=== PATIENT | female | born 1975 | race Two or more races ===

== ENCOUNTER 2017-10-18 22:13 | Day surgery (SDC) | payer OTHER ==
[2017-10-18 22:28] VITALS: BMI 42.9
--- NOTE | 2017-10-19 00:10 | PDOC ---
History of Present Illness - General History Source: Patient Exam Limitations: No Limitations - History of Present Illness Initial Comments: 10/19/17 01:11 The patient is a 42 year old female with no significant PMH who presents to the emergency department with episode of vomiting since earlier today. The patient also reports some 10 episodes of diarrhea . she states that she has been experiencing right upper quadrant and right lower quadrant pain secondary to her symptoms. The patient states that she is unable to tolerate po intake secondary to her symptoms as well. The patient denies any other symptoms. She denies any fever, chills, nausea, constipation or urinary symptoms. She denies any chest pain, shortness of breath, headache and dizziness. The patient denies any sick contact. The patient denies any other complaints. <Robel Balderrama - Last Filed: 10/19/17 01:11> <Liz Guajardo - Last Filed: 10/19/17 03:04> - General Chief Complaint: Vomiting/Diarrhea Stated Complaint: VOMITING/DIARRHEA Time Seen by Provider: 10/18/17 23:59 Past History <Robel Balderrama - Last Filed: 10/19/17 01:11> - Past Medical History COPD: No - Suicide/Smoking/Psychosocial Hx Smoking History: Never smoked <Liz Guajardo - Last Filed: 10/19/17 03:04> - Past Medical History Allergies/Adverse Reactions: Allergies Allergy/AdvReac Type Severity Reaction Status Date / Time No Known Allergies Allergy Verified 10/18/17 22:23 Review of Systems - Review of Systems Able to Perform ROS?: Yes Comments:: 10/19/17 01:11 GENERAL/CONSTITUTIONAL: No fever or chills. No weakness. HEAD, EYES, EARS, NOSE AND THROAT: No change in vision. No ear pain or discharge. No sore throat. CARDIOVASCULAR: No chest pain or shortness of breath. RESPIRATORY: No cough, wheezing, or hemoptysis. GASTROINTESTINAL:(+)vomiting, diarrhea. No nausea, or constipation. GENITOURINARY: No dysuria, frequency, or change in urination. MUSCULOSKELETAL: No joint or muscle swelling or pain. No neck or back pain. SKIN: No rash NEUROLOGIC: No headache, vertigo, loss of consciousness, or change in strength/ sensation. ENDOCRINE: No increased thirst. No abnormal weight change. HEMATOLOGIC/LYMPHATIC: No anemia, easy bleeding, or history of blood clots. ALLERGIC/IMMUNOLOGIC: No hives or skin allergy. <Robel Balderrama - Last Filed: 10/19/17 01:11> *Physical Exam - Vital Signs Last Vital Signs Temp Pulse Resp BP Pulse Ox 99 F 63 18 134/77 98 10/18/17 22:25 10/18/17 22:25 10/18/17 22:25 10/18/17 22:25 10/18/17 22:25 - Physical Exam Comments: 10/19/17 01:11 GENERAL: Awake, alert, and fully oriented, in no acute distress HEAD: No signs of trauma EYES: PERRLA, EOMI, sclera anicteric, conjunctiva clear ENT: Auricles normal inspection, hearing grossly normal, nares patent, oropharynx clear without exudates. Moist mucosa NECK: Normal ROM, supple, no lymphadenopathy, JVD, or masses LUNGS: Breath sounds equal, clear to auscultation bilaterally. No wheezes, and no crackles HEART: Regular rate and rhythm, normal S1 and S2, no murmurs, rubs or gallops ABDOMEN: Soft, nontender, normoactive bowel sounds. No guarding, no rebound. No masses. Negative stanford's sign. EXTREMITIES: Normal range of motion, no edema. No clubbing or cyanosis. No cords, erythema, or tenderness NEUROLOGICAL: Cranial nerves II through XII grossly intact. Normal speech, normal gait SKIN: Warm, Dry, normal turgor, no rashes or lesions noted. <Robel Balderrama - Last Filed: 10/19/17 01:11> - Vital Signs Last Vital Signs Temp Pulse Resp BP Pulse Ox 99 F 63 18 134/77 98 10/18/17 22:25 10/18/17 22:25 10/18/17 22:25 10/18/17 22:25 10/18/17 22:25 <Liz Guajardo - Last Filed: 10/19/17 03:04> ED Treatment Course - LABORATORY CBC & Chemistry Diagram: 10/19/17 00:46 10/19/17 00:50 - ADDITIONAL ORDERS Additional order review: 10/19/17 00:46 RBC 4.87 MCV 88.6 MCHC 33.5 RDW 14.0 MPV 9.7 Neutrophils % 90.4 H Lymphocytes % 6.3 L Monocytes % 3.1 L Eosinophils % 0.0 Basophils % 0.2 - Medications Given in the ED: ED Medications Discontinued Medications Generic Name Dose Route Start Last Admin Trade Name Connor PRN Reason Stop Dose Admin Acetaminophen 1,000 mg 10/19/17 00:11 10/19/17 00:38 Ofirmev Injection - IVPB 10/19/17 00:12 1,000 mg ONCE ONE Administration Famotidine/Sodium Chloride 20 mg in 50 mls @ 100 mls/hr 10/19/17 00:11 00:38 Pepcid 20 Mg Premixed Ivpb - IVPB 10/19/17 00:40 100 mls/hr ONCE ONE Administration Ondansetron HCl 4 mg 10/19/17 00:11 10/19/17 00:38 Zofran Injection IVPUSH 10/19/17 00:12 4 mg ONCE ONE Administration Sodium Chloride 1,000 ml 10/19/17 00:11 10/19/17 00:37 Normal Saline - IV 10/19/17 00:12 1,000 ml ONCE ONE Administration <Robel Balderrama - Last Filed: 10/19/17 01:11> - LABORATORY CBC & Chemistry Diagram: 10/19/17 00:46 10/19/17 00:50 <Liz Guajardo - Last Filed: 10/19/17 03:04> Medical Decision Making - Medical Decision Making 10/19/17 00:35 a/p: 42yo female with n/v/d today and abd pain -both RUQ and RLQ abd pain -pain over mcburneys point -neg murphys -concern for poss appy -will send labs, ct abd/pelvis -will hydrate with ivf hydration -zofran for n/v -iv tylenol -will monitor and reassess +rovsing sign 10/19/17 02:49 pt with elevated wbc 10/19/17 02:49 ct shows early acute appendicitis case discussed with Dr. Syed who is now at the bedside to eval the patient 10/19/17 03:04 dr syed preop for or for appy accepts pt to service <Liz Guajardo - Last Filed: 10/19/17 03:04> *DC/Admit/Observation/Transfer - Attestations Scribe Attestion: 10/19/17 01:12 Documentation prepared by Robel Balderrama, acting as medical technologist microbiology for Liz Guajardo MD. <Robel Balderrama - Last Filed: 10/19/17 01:11> - Discharge Dispostion Decision to Admit order: Yes - Attestations Physician Attestion: 10/19/17 02:49 I, Dr. Liz Guajardo, DO, attest that this document has been prepared under my direction and personally reviewed by me in its entirety. I further attest, that it accurately reflects all work, treatment, procedures and medical decision -making performed by me. <Liz Guajardo - Last Filed: 10/19/17 03:04> Diagnosis at time of Disposition: Appendicitis - Discharge Dispostion Condition at time of disposition: Fair
[2017-10-19] MEDS ORDERED: ONDANSETRON 4 MG/2 ML VIAL IVPUSH ONE (00:11)
[2017-10-19] MEDS ORDERED: SODIUM CHLORIDE 0.9% 1000 ML INFUS.BAG IV ONE ×3 (00:11→02:36)
[2017-10-19] MEDS ORDERED: FAMOTIDINE 20 MG/50 ML IVPB 20 MG/50 ML MG IVPB ONE ×2 (00:11→00:27)
[2017-10-19] MEDS ORDERED: ACETAMINOPHEN 1000 MG/100 ML VIAL (NON FORMULARY) IVPB ONE (00:11)
[2017-10-19] MEDS ORDERED: ACETAMINOPHEN INJECTION 100 ML IVPB ONE (00:26)
[2017-10-19] MEDS ORDERED: ONDANSETRON 4 MG/2 ML VIAL ONE (00:27)
[2017-10-19 01:00] LABS: BASO % 0.2 % (0-2.0); HEMATOCRIT 43.1 % (32.4-45.2); HEMOGLOBIN 14.4 GM/dL (10.7-15.3); LYMPH % 6.3 % (8-40); MCH 29.7 pg (25.7-33.7); MCHC 33.5 g/dl (32.0-36.0); MEAN CELL VOLUME 88.6 fl (80-96); MEAN PLT VOLUME 9.7 fl (7.5-11.1); MONO % 3.1 % (3.8-10.2); NEUT % 90.4 % (42.8-82.8); PLATELET COUNT 244 K/MM3 (134-434); RBC 4.87 M/mm3 (3.60-5.2); WHITE BLOOD COUNT 15.7 K/mm3 (4.0-10.0)
[2017-10-19 01:17] LABS: URINE APPEARANCE SLCLOUDY; URINE BILIRUBIN NEGATIVE (<2.0 mg/dL); URINE COLOR DKYELLOW; URINE GLUCOSE (UA) NEGATIVE (NEGATIVE); URINE KETONE 2+ (NEGATIVE); URINE LEUK ESTERASE NEGATIVE (NEGATIVE); URINE NITRITE NEGATIVE (NEGATIVE)
[2017-10-19 01:23] LABS: HCG,QUALITATIVE URINE NEGATIVE; URINE PROTEIN 2+ (NEGATIVE)
[2017-10-19 01:24] LABS: ALBUMIN 4.1 g/dl (3.4-5.0); ANION GAP 8 (8-16); BILIRUBIN,TOTAL 0.3 mg/dL (0.2-1.0); BLOOD UREA NITROGEN 16 mg/dL (7-18); CHLORIDE 102 mmol/L (98-107); CO2 27 mmol/L (21-32); CREATININE 0.6 mg/dL (0.55-1.02); GLUCOSE,RANDOM 117 mg/dL (74-106); LIPASE 77 U/L (73-393); MAGNESIUM 2.1 mg/dL (1.8-2.4); POTASSIUM 4.4 mmol/L (3.5-5.1); SGOT/AST 19 U/L (15-37); SGPT/ALT 28 U/L (12-78); SODIUM 137 mmol/L (136-145); TOT PROT 7.9 g/dl (6.4-8.2)
[2017-10-19 01:25] LABS: ALK PHOS 62 U/L (45-117); EPI CELLS MODERATE /HPF (FEW); URINE BACTERIA RARE /hpf (NONE SEEN); URINE MUCUS MANY
[2017-10-19] MEDS ORDERED: CEFOXITIN SODIUM 2 GM in DEXTROSE 5%-WATER - 100 ML IVPB ONE ×3 (03:03→16:00)
--- NOTE | 2017-10-19 03:33 | HP ---
Admitting History and Physical - Primary Care Physician PCP: none - Admission Chief Complaint: left periumbilical pain, n/v, anorexia History of Present Illness: 42yo F with h/o kidney stones presented to ER with left periumbilical pain beginning Wed morning associated with watery diarrhea, n/v (nb/nb) and anorexia. Last po was in the evening ~9pm, but little has stayed down. She had water, coconut water, michael fernando just before coming to ER. In ER, she has low grade temp, wbc 15.7, component of dehydration, nausea and retching, and loose stool while waiting. CT showed evidence of early acute appendicitis with appendix 1cm and mild surrounding inflammatory changes. She feels better after pain medication and IV fluids. No significant pain but still cleaner RLQ. She was seen in holding area with boyfriend at bedside. 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 denies: Fever Eyes: denies: Blurred Vision, Recent Change in Vision HENT: denies: Difficult Swallowing, Nasal Congestion, Throat Pain Neck: denies: Swollen Glands, Tenderness Cardiovascular: denies: Chest Pain, Palpitations Respiratory: denies: Cough, SOB Gastrointestinal: reports: Abdominal Pain, Diarrhea, Nausea, Vomiting. denies: Constipation, Rectal Bleeding, Vomiting Blood Genitourinary: denies: Burning, Dysuria Musculoskeletal: denies: Back Pain, Joint Pain, Muscle Pain Integumentary: denies: Change in Color, Rash Neurological: denies: Dizziness, Headache Psychiatric: denies: Anxiety, Depression Physical Examination Vital Signs: Vital Signs Temperature 99 F 10/18/17 22:25 Pulse Rate 63 10/18/17 22:25 Respiratory Rate 18 10/18/17 22:25 Blood Pressure 134/77 10/18/17 22:25 O2 Sat by Pulse Oximetry (%) 98 10/18/17 22:25 Constitutional: Yes: No Distress, Calm, Obese Eyes: Yes: Conjunctiva Clear, EOM Intact HENT: Yes: Atraumatic, Normocephalic Neck: Yes: Supple, Trachea Midline Cardiovascular: Yes: Regular Rate and Rhythm. No: Murmur Respiratory: Yes: Regular, CTA Bilaterally Gastrointestinal: Yes: Normal Bowel Sounds, Soft, Abdomen, Obese, Tenderness ( RLQ at McBurney's without rebound or guarding). No: Tenderness, Rebound, Vomiting ...Rectal Exam: Yes: Deferred Renal/: No: CVA Tenderness - Left, CVA Tenderness - Right Musculoskeletal: No: Joint Stiffness, Joint Swelling Extremities: No: Cool, Cyanosis Edema: No Peripheral Pulses WNL: Yes Integumentary: No: Jaundice, Rash Neurological: Yes: Alert, Oriented Psychiatric: Yes: Alert, Oriented Labs: CBC, BMP 10/19/17 00:46 10/19/17 00:50 CMP Sodium 137 mmol/L (136-145) 10/19/17 00:50 Potassium 4.4 mmol/L (3.5-5.1) 10/19/17 00:50 Chloride 102 mmol/L (98-107) 10/19/17 00:50 Carbon Dioxide 27 mmol/L (21-32) 10/19/17 00:50 Anion Gap 8 (8-16) 10/19/17 00:50 BUN 16 mg/dL (7-18) 10/19/17 00:50 Creatinine 0.6 mg/dL (0.55-1.02) 10/19/17 00:50 Creat Clearance w eGFR > 60 (>60) 10/19/17 00:50 Random Glucose 117 mg/dL (74-106) H 10/19/17 00:50 Calcium 9.0 mg/dL (8.5-10.1) 10/19/17 00:50 Magnesium 2.1 mg/dL (1.8-2.4) 10/19/17 00:50 Total Bilirubin 0.3 mg/dL (0.2-1.0) 10/19/17 00:50 AST 19 U/L (15-37) 10/19/17 00:50 ALT 28 U/L (12-78) 10/19/17 00:50 Alkaline Phosphatase 62 U/L (45-117) 10/19/17 00:50 Total Protein 7.9 g/dl (6.4-8.2) 10/19/17 00:50 Albumin 4.1 g/dl (3.4-5.0) 10/19/17 00:50 Lipase 77 U/L (73-393) 10/19/17 00:50 Urine Test Results Urine Color Dkyellow 10/19/17 00:50 Urine Appearance Slcloudy 10/19/17 00:50 Urine pH 5.0 (5.0-8.0) 10/19/17 00:50 Ur Specific Eva 1.033 (1.001-1.035) 10/19/17 00:50 Urine Protein 2+ (NEGATIVE) H 10/19/17 00:50 Urine Glucose (UA) Negative (NEGATIVE) 10/19/17 00:50 Urine Ketones 2+ (NEGATIVE) H 10/19/17 00:50 Urine Blood 1+ (NEGATIVE) H 10/19/17 00:50 Urine Nitrite Negative (NEGATIVE) 10/19/17 00:50 Urine Bilirubin Negative (<2.0 mg/dL) 10/19/17 00:50 Ur Leukocyte Esterase Negative (NEGATIVE) 10/19/17 00:50 Ur Epithelial Cells Moderate /HPF (FEW) 10/19/17 00:50 Urine Bacteria Rare /hpf (NONE SEEN) 10/19/17 00:50 Urine Mucus Many 10/19/17 00:50 PT/INR pending Imaging - Results Cat Scan: Report Reviewed, Image Reviewed (images personally reviewed, [facility]; no obstruction, no free air or fluid, appendix dilated to 1cm, mild periappendiceal inflammatory changes, large uterine fibroid with portion off right superior horn, also displacing IUD to upper right) Problem List - Problems (1) Appendicitis, acute Assessment/Plan: admit 23H/satellite to surgery NPO/IVF until postop IV antibiotics pain meds prn DVT prophylaxis Discussed with patient risks, benefits and alternatives of laparoscopic possible open appendectomy, including but not limited to bleeding, infection, injury to adjacent structures, intestinal leak or injury, intraabdominal abscess , hernia, need for further procedures, ; alternatives include antibiotics, delayed or no surgery - risks of this include failure of nonoperative therapy, perforation, sepsis, recurrence, . Pt seems comfortable with explanation of appendicitis, recommendation for surgery and understanding of R/B/A. Her boyfriend asked about what would happen if she "opted out" of surgery, wanted a second opinion, or walked out and got better. He was told that she was welcome to a second opinion in the morning, and potential for treatment with antibiotics and no surgery was discussed, including risks of failure of nonoperative therapy, 4-5 days in hospital on IV antibiotics before transitioning to oral for home, possibility of recurrence with appendix still in, and chance of perforation, need for percutaneous drainage, interval appendectomy or emergent surgery with higher risks of complications. We also discussed that the chance of getting better with no treatment at all was highly unlikely, and she was far more likely to perforate, possibly get septic, and need some or all of the above interventions anyway. Patient desires to proceed with operation - will take to OR for above. Informed consent signed for same. Code(s): K35.80 - UNSPECIFIED ACUTE APPENDICITIS Qualifiers: Acute appendicitis type: unspecified acute appendicitis type Qualified Code (s): K35.80 - Unspecified acute appendicitis (2) Periumbilical pain Code(s): R10.33 - PERIUMBILICAL PAIN (3) Nausea and vomiting Code(s): R11.2 - NAUSEA WITH VOMITING, UNSPECIFIED Qualifiers: Vomiting type: unspecified Vomiting Intractability: non-intractable Qualified Code(s): R11.2 - Nausea with vomiting, unspecified (4) Diarrhea Code(s): R19.7 - DIARRHEA, UNSPECIFIED Qualifiers: Diarrhea type: unspecified type Qualified Code(s): R19.7 - Diarrhea, unspecified (5) Morbid obesity with BMI of 40.0-44.9, adult Code(s): E66.01 - MORBID (SEVERE) OBESITY DUE TO EXCESS CALORIES; Z68.41 - BODY MASS INDEX (BMI) 40.0-44.9, ADULT
[2017-10-19] MEDS ORDERED: MORPHINE SULFATE 2 MG/ML VIAL IVPUSH PRN (03:52)
[2017-10-19] MEDS ORDERED: ACETAMINOPHEN 325 MG TABLET (FP) PO PRN (03:52)
[2017-10-19] MEDS ORDERED: IBUPROFEN 600 MG TABLET (FP) PO PRN (03:52)
[2017-10-19] MEDS ORDERED: ONDANSETRON 4 MG/2 ML VIAL IVPUSH PRN ×3 (03:55→10:41)
[2017-10-19] MEDS ORDERED: LACTATED RINGERS SOLUTION 1,000 ML/1,000 ML INFUS.BAG IV SCH (04:00)
[2017-10-19 05:05] LABS: INR 1.12 (0.82-1.09); PROTHROMBIN TIME (PATIENT) 12.6 SEC (9.7-13.0)
[2017-10-19 05:08] LABS: ACTIVATED PTT 32.5 SECONDS (25.2-36.5)
[2017-10-19] MEDS ORDERED: LACTATED RINGERS SOLUTION 1,000 ML IV SCH ×2 (08:00→10:41)
[2017-10-19] MEDS ORDERED: MIDAZOLAM HCL 2 MG/2 ML SINGLE DOSE VIAL ONE (08:25)
[2017-10-19] MEDS ORDERED: PROPOFOL 20 ML ONE ×2 (08:28→09:46)
[2017-10-19] MEDS ORDERED: SUCCINYLCHOLINE CHLORIDE 200 MG/10 ML VIAL ONE (08:28)
[2017-10-19] MEDS ORDERED: ROCURONIUM BROMIDE 50 MG/5 ML VIAL ONE (08:28)
[2017-10-19] MEDS ORDERED: cefOXitin SODIUM 2 GM VIAL (RESTRICTED TO ID) IVPB ONE ×2 (08:33→14:58)
[2017-10-19] MEDS ORDERED: CEFOXITIN SODIUM 2 GM IVPB ONE (08:42)
[2017-10-19] MEDS ORDERED: GLYCOPYRROLATE 0.2 MG/1 ML VIAL ONE (09:21)
[2017-10-19] MEDS ORDERED: LIDOCAINE HCL 2% JELLY (5 ML/TUBE) ONE (09:21)
[2017-10-19] MEDS ORDERED: LIDOCAINE HCL/PF 2% SDV 5ML VIAL ONE (09:21)
[2017-10-19] MEDS ORDERED: NEOSTIGMINE METHYLSULFATE 0.5 MG/ML - 10 ML MDV ONE (09:21)
[2017-10-19] MEDS ORDERED: DEXAMETHASONE SOD PHOSPHATE 4 MG/1 ML VIAL ONE (09:21)
[2017-10-19] MEDS ORDERED: PHENYLEPHRINE HCL 10 MG/1 ML SINGLE DOSE VIAL ONE (09:21)
[2017-10-19] MEDS ORDERED: BUPIVACAINE HCL/PF 0.5% (5MG/ML) 10 ML VIAL IJ ONE (09:25)
--- NOTE | 2017-10-19 10:13 | OP ---
Operative Note - Note: Operative Date: 10/19/17 Pre-Operative Diagnosis: acute appendicitis Operation: laparoscopic appendectomy Findings: inflamed appendix Post-Operative Diagnosis: Same as Pre-op Surgeon: Ino Syed Snack Steward: Kaushik Chamberlain Anesthesiologist/COMMERCIAL CARPET INSTALLER: Twila Warner MD Anesthesia: General, Local (20ml 0.5% marcaine) Specimens Removed: appendix to pathology Estimated Blood Loss (mls): 10 Drains & Tubes with Location: Nevarez out at end of case Drains, Volume Out (mls): 600 (UOP) Fluid Volume Replaced (mls): 1,200 (crystalloid) Operative Report Dictated: Yes
[2017-10-19] MEDS ORDERED: oxyCODONE HCL 5 MG TABLET PO PRN ×2 (10:20→10:41)
[2017-10-19] MEDS ORDERED: ACETAMINOPHEN 325 MG TABLET (FP) PO SCH ×2 (12:00)
[2017-10-19] MEDS ORDERED: ACETAMINOPHEN 325 MG TABLET (FP) ONE (12:13)
[2017-10-19 14:38] VITALS: TEMP 98.3
[2017-10-19] MEDS ORDERED: IBUPROFEN 600 MG TABLET (FP) PO ONE ×2 (14:58→15:00)
[2017-10-19] MEDS ORDERED: IBUPROFEN 600 MG TABLET (FP) PO SCH ×2 (15:00)
[2017-10-19 17:00] VITALS: BP 106/50; PULSE 70
--- NOTE | 2017-10-20 17:13 | PATH ---
Surgical Pathology Report Patient Name: ZEE BAH [facility]. Rec. #: [id number] /Age/Gender: 1975 (Age: 42) / F Account: [id number] Location: AMBULATORY SURG Taken: 10/19/2017 Received: 10/19/2017 Reported: 10/20/2017 Physicians: Ino Syed M.D. PHYSICIAN EMERGENCY DEPT Specimen(s) Received APPENDIX Clinical History Acute appendicitis Final Diagnosis APPENDIX, APPENDECTOMY: SEVERE ACUTE APPENDICITIS AND PERIAPPENDICITIS. Electronically Signed Ayaan Dove M.D. Gross Description Received in formalin, labeled "appendix," is a 9.3 cm. in length vermiform appendix with a stapled margin of resection and moderate attached fat. The serosa is pink-baker with attached exudate. Sectioning reveals a dilated lumen containing pus. The wall of the appendix averages 0.1 cm. in thickness. Family [employer] Professor sections are submitted in one cassette. /10/19/2017 saudi/10/19/2017
--- NOTE | 2017-10-24 20:40 | OP ---
DATE OF OPERATION: 10/19/2017 PREOPERATIVE DIAGNOSIS: Acute appendicitis. POSTOPERATIVE DIAGNOSIS: Acute appendicitis. PROCEDURE: Laparoscopic appendectomy. SURGEON: Ino Syed MD CORRECTIVE AND MANUAL ARTS THERAPIST: Concepcion Chamberlain MS-3 ANESTHESIA: General endotracheal and local 20 mL of 0.5% Marcaine. ESTIMATED BLOOD LOSS: 10 mL. FLUIDS: 1200 mL of crystalloid. URINE OUTPUT: 600 mL (Nevarez out at end of case). SPECIMEN: Appendix to Pathology. FINDINGS: An inflamed appendix. DISPOSITION: Stable and extubated to PACU. INDICATIONS FOR PROCEDURE: The patient is a morbidly obese 42-year-old female with a history of kidney stones, former smoker, and a current marijuana user, who presented to the emergency room with left periumbilical pain beginning the day prior, associated with watery diarrhea, nausea, vomiting, and anorexia. In the emergency room, she had a low-grade temperature, a white count of 15.7, and a CAT scan showed evidence of early acute appendicitis with a 1-cm appendix and mild surrounding inflammatory changes with no evidence of abscess or perforation. Risks, benefits, and alternatives of laparoscopic, possible open appendectomy, including but not limited to bleeding, infection, injury to adjacent structures, intestinal leak or injury, intraabdominal abscess, hernia, and need for further procedures, were discussed with the patient. Alternatives were also mentioned, including antibiotics, delayed or no surgery, with attendant risks of failure of nonoperative therapy, perforation, sepsis, recurrence, and . The patient does desire to proceed with the operation. An informed consent was signed. She is now brought to the OR for this procedure. OPERATIVE TECHNIQUE: The patient was brought to the operating room and laid supine in the operating table. Sequential compression devices were applied to bilateral lower extremities. Cefoxitin 2 g was given preoperative antibiotic in the OR. After induction and intubation by anesthesia, the patient's abdomen was prepped and draped in sterile fashion. A small infraumbilical midline incision was made with a scalpel and carried in subcutaneous tissues with electrocautery. [place] retractors were used to spread and expose the area until the abdominal wall fascia could be identified. This was then scored with electrocautery and elevated with Martina clamps. The tip of the clamp was used to enter the peritoneum bluntly, and a fingertip was inserted to ensure entry into the abdominal cavity and the absence of any underlying adhesions. A stay suture of 0 Vicryl was then placed in the fascia in [id number] fashion for later closure, after which the Kelley trocar was introduced directly into the abdominal cavity and secured in place with the balloon. The abdomen was insufflated with carbon dioxide and the patient was placed in Trendelenburg position and the laparoscope inserted to inspect the abdominal cavity. The tip of the patient's appendix became visible in the right lower quadrant and it did appear to be inflamed. Two additional 5-mm ports were then placed under direct vision in the left lower quadrant and suprapubic areas, and the camera was switched to the left lower quadrant port. Two graspers were introduced through the other 2 ports and used to grasp and manipulate the appendix, both again clearly identifying it and also helping hold while the right hand grasper was exchanged for a [place] dissector, which was then used to create a window at the base of the appendix where it joined the cecum, wide enough for a stapler to fit through. A 45 purple load of the Endo YANI stapler was then used to transect the base of the appendix where it joined the cecum. The staple line was inspected for hemostasis and appeared to be complete. The appendix was then re-grasped and held up to expose the mesoappendix. A 45 load of the white stapler was then used to come across the mesoappendix. This accomplished near transection but there was a small bit of tissue still connected, and a 2nd load of the stapler was utilized to complete the transsection. Once the appendix was completely free, it was set aside for the moment, before being placed in an EndoCatch bag for retrieval outside of the abdomen. The operative site was inspected and the staple line on the mesoappendix did appear to have just a little bit of oozing of blood, thus the [place] dissector was hooked to the cautery and used to carefully and precisely cauterize just past the staple line at the edge of the tissue, achieving complete hemostasis. The suction engine room operator tool was then used to suction up some of the nearby blood clots. There was no significant fluid noted in the patient's pelvis. The appendix was then placed in an EndoCatch bag and retrieved out the umbilical port site, and patient was returned to neutral position. The other trocar was removed under direct vision and the camera and left lower quadrant port were also removed and the abdomen exsufflated of carbon dioxide. The appendix was passed off for a pathology specimen. The stay suture at the umbilical port site was tied to close the fascia there, and hemostasis was achieved in the port sites with electrocautery where needed. Local anesthetic was infiltrated into all the port sites, and the skin was closed with 4-0 Vicryl subcuticular sutures including a running at the umbilical site. Benzoin and Steri-Strips were applied to each incision. These were covered with dressings of gauze and Tegaderm. Counts were correct at the end of the procedure. The Nevarez catheter was removed from the patient's bladder at the end of the case. The patient was then awakened and extubated by Anesthesia. She was moved back to a stretcher and taken to the recovery room in stable condition, having tolerated the procedure well. Ino Syed M.D. BLOSSOM/[id number]
--- NOTE | 2017-10-25 11:45 | EKG ---
Test Reason : Blood Pressure : / mmHG Vent. Rate : 081 BPM Atrial Rate : 081 BPM P-R Int : 184 ms QRS Dur : 084 ms QT Int : 386 ms P-R-T Axes : 043 012 002 degrees QTc Int : 448 ms NORMAL SINUS RHYTHM NORMAL ECG NO PREVIOUS ECGS AVAILABLE Confirmed by LOWELL WEATHERS, JUANPABLO ([id number]) on 10/25/2017 11:44:59 AM Referred By: Confirmed By:JUANPABLO ETIENNE MD
== END 2017-10-19 18:00 | disposition home or self-care (01) ==
LOC: JER 22:13 → JASUSAT 10-19 03:04 → JERBED 10-19 03:55 → UNDOADMIN 10-19 03:55 → JASUSAT 10-19 18:00
PROVIDERS: ATTEND Surgery
PROC: 0DTJ4ZZ Resection of Appendix, Percutaneous Endoscopic Approach (ICD-10-PCS; principal; 2017-10-19 08:00)
DX: K36 Other appendicitis (principal)
CPT/HCPCS: 36415; 74177-TC; 80053; 81003; 81015; 83690; 83735; 84703; 85025; 85610; 85730; 86850; 86900; 86901; 88304-TC; 93005; 93010; 94760; 99282-25; J0131; J7030

== ENCOUNTER 2018-05-26 09:47 | Emergency (ER) | payer OTHER ==
[2018-05-26 09:54] VITALS: BP 124/70; PULSE 60; TEMP 98; BMI 41.1
[2018-05-26] MEDS ORDERED: KETOROLAC TROMETHAMINE 60 MG/2 ML VIAL IM ONE (10:15)
[2018-05-26] MEDS ORDERED: CYCLOBENZAPRINE HCL 10 MG TABLET (FP) PO ONE (10:15)
--- NOTE | 2018-05-26 10:21 | PDOC ---
History of Present Illness - General Chief Complaint: Back Pain Stated Complaint: BACK PAIN Time Seen by Provider: 05/26/18 10:09 History Source: Patient - History of Present Illness Pain Location: reports: back Associated Symptoms (Fall): denies symptoms Past History - Travel Traveled outside of the country in the last 30 days: No Close contact w/someone who was outside of country & ill: No - Past Medical History Allergies/Adverse Reactions: Allergies Allergy/AdvReac Type Severity Reaction Status Date / Time No Known Allergies Allergy Verified 05/26/18 09:54 Home Medications: Ambulatory Orders NK [No Known Home Medication] 05/26/18 COPD: No - Surgical History Appendectomy: Yes (10/25) - Suicide/Smoking/Psychosocial Hx Smoking History: Never smoked Have you smoked in the past 12 months: No If you are a former smoker, when did you quit?: 20 yrs ago Hx Alcohol Use: Yes (social) Review of Systems - Review of Systems Able to Perform ROS?: Yes Is the patient limited Japanese proficient: No Constitutional: No: Chills, Fever Respiratory: No: Shortness of Breath Cardiac (ROS): No: Chest Pain ABD/GI: No: Abdominal Distended : No: Burning, Dysuria, Discharge, Frequency, Flank Pain, Hematuria, Incontinence, Pain, Urgency Musculoskeletal: Yes: Back Pain. No: Gout, Joint Pain, Joint Swelling, Muscle Pain, Muscle Weakness Neurological: No: Numbness, Paresthesia, Weakness *Physical Exam - Vital Signs Last Vital Signs Temp Pulse Resp BP Pulse Ox 98 F 60 18 124/70 100 05/26/18 09:51 05/26/18 09:51 05/26/18 09:51 05/26/18 09:51 05/26/18 09:51 - Physical Exam General Appearance: Yes: Nourished Respiratory/Chest: positive: Lungs Clear, Normal Breath Sounds Cardiovascular: positive: Regular Rhythm, Regular Rate, S1, S2 Musculoskeletal: positive: Muscle Spasm, Other (+ paraspinal tenderness in LS spine minaly on the left side) Integumentary: positive: Normal Color 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 Patient denies any trauma any bladder or bowel incontinence or saddle anesthesia. Patient denies any urinary issues as well. Patient examination consistent paraspinal tenderness on the left. Positive straight leg raise at 45. She is otherwise well appearing. LMP was 2/14. UA prick test was obtained. Pain control will reassess patient disposition pending 05/26/18 11:12 Urine was wnl, + blood but patient is currently on menses. She was reassessed after Toradol and no muscle relaxant patient felt much better. Patient is reported to me that she was seen by her primary care doctor 2 days ago and was given Naprosyn and Flexeril of which she has not started taking yet. Patient was advised to continue medication as previously prescribed on follow up with primary care doctor or return to the emergency room if *DC/Admit/Observation/Transfer Diagnosis at time of Disposition: Back pain Qualifiers: Back pain location: low back pain Chronicity: acute Back pain laterality: unspecified Sciatica presence: with sciatica Sciatica laterality: sciatica of left side Qualified Code(s): M54.42 - Lumbago with sciatica, left side - Discharge Dispostion Disposition: HOME Condition at time of disposition: Good Decision to Admit order: No - Referrals Referrals: Carmenza Marie MD [Primary Care Provider] - - Patient Instructions Printed Discharge Instructions: DI for Low Back Pain Additional Instructions: Please start the medications as previously prescribed by given primary care doctor. Apply warm compresses to get back. Avoid heavy lifting. Return to the emergency room if worsening pain or numbness to the legs occurs. Otherwise follow-up which a primary care doctor - Post Discharge Activity
[2018-05-26 10:35] LABS: URINE APPEARANCE CLEAR; URINE BILIRUBIN NEGATIVE (<2.0 mg/dL); URINE COLOR YELLOW; URINE GLUCOSE (UA) NEGATIVE (NEGATIVE); URINE KETONE NEGATIVE (NEGATIVE); URINE LEUK ESTERASE NEGATIVE (NEGATIVE); URINE NITRITE NEGATIVE (NEGATIVE); URINE PROTEIN NEGATIVE (NEGATIVE); URINE UROBILINOGEN NEGATIVE mg/dL (0.2-1.0)
[2018-05-26 10:53] LABS: EPI CELLS RARE /HPF (FEW); URINE MUCUS RARE
[2018-05-26] MEDS ORDERED: CYCLOBENZAPRINE HCL 10 MG TABLET (FP) ONE (10:55)
[2018-05-26] MEDS ORDERED: KETOROLAC TROMETHAMINE 30 MG/1 ML VIAL ONE (10:55)
== END 2018-05-26 11:19 | disposition home or self-care (01) ==
LOC: JERFT 09:47
PROC: 3E0233Z Introduction of Anti-inflammatory into Muscle, Percutaneous Approach (ICD-10-PCS; principal; 2018-05-26)
DX: M54.42 Lumbago with sciatica, left side (principal)
CPT/HCPCS: 81003; 81015; 84703; 96372; 99281-25